=== PATIENT | female | born 1960 | race Two or more races ===

== ENCOUNTER 2016-12-08 17:05 | Inpatient (IN) | payer OTHER ==
[~2016-12-08] VITALS: Ht 162.6 cm; Wt 46.6 kg
[2016-12-08] MEDS ORDERED: SODIUM CHLORIDE FLUSH 10ML SYR IVF ONE (17:30)
[2016-12-08] MEDS ORDERED: ONDANSETRON 2MG/ML, 2ML IVPush ONE (17:30)
[2016-12-08] MEDS ORDERED: PLEASE ENTER ALLERGIES MC SCH ×2 (17:30)
[2016-12-08] MEDS ORDERED: SODIUM CHLORIDE 0.9% 1,000ML IVBOLUS ONE (17:30)
[2016-12-08] MEDS ORDERED: ONDANSETRON 2MG/ML, 2ML ONE (17:43)
[2016-12-08 17:51] LABS: ASPARTATE AMINO TRANSFERASE 29 U/L (15-37); BLOOD UREA NITROGEN 32 mg/dL (7-18)
[2016-12-08 17:54] LABS: ACETAMINOPHEN < 2 mcg/mL (10-30)
[2016-12-08] MEDS ORDERED: MORPHINE SULFATE 4 MG/ML, 1ML ONE ×2 (18:35→21:46)
[2016-12-08] MEDS ORDERED: MORPHINE SULFATE 4 MG/ML, 1ML IVPush ONE ×2 (19:00→22:00)
[2016-12-08 19:10] LABS: DAU SCREEN DISCLAIMER
[2016-12-08 20:50] LABS: GLUCOSE, CSF 100 mg/dL (40-80)
[2016-12-08] MEDS ORDERED: UNKNOWN BP MED (21:54)
[2016-12-08] MEDS ORDERED: SIMV20TA3 PO (21:54)
[2016-12-08] MEDS ORDERED: GLIM2TAB2 PO (21:54)
[2016-12-08] MEDS ORDERED: BISACODYL 10 MG SUPP PR PRN (23:30)
[2016-12-08] MEDS ORDERED: ONDANSETRON 2MG/ML, 2ML IVP PRN (23:30)
[2016-12-08] MEDS ORDERED: POLYETHYLENE GLYCOL 17 GM PACKET PO PRN (23:30)
[2016-12-08] MEDS ORDERED: SIMVASTATIN 20 MG TABLET PO SCH (23:30)
[2016-12-08] MEDS ORDERED: ACETAMINOPHEN 325 MG TABLET PO PRN (23:30)
[2016-12-08] MEDS ORDERED: MECLIZINE CHEWABLE 25 MG TAB PO PRN (23:30)
[2016-12-09 00:13] LABS: IS PT STATUS REG ER OR PRE ER? NO
[2016-12-09] MEDS: SODIUM CHLORIDE 0.9% 1,000 ML IV SCH ×2 (00:26→09:05)
[2016-12-09] MEDS: HEPARIN 5,000 UNITS/ML, 1ML SQ SCH ×4 (00:29→15:30)
[2016-12-09 00:33] VITALS: BP 146/70
[2016-12-09 02:59] VITALS: BP 146/70
[2016-12-09 05:32] LABS: ASPARTATE AMINO TRANSFERASE 18 U/L (15-37); BLOOD UREA NITROGEN 33 mg/dL (7-18)
[2016-12-09 05:40] LABS: IS PT STATUS REG ER OR PRE ER? NO
[2016-12-09 06:47] VITALS: BP 107/57
[2016-12-09] MEDS: GLIMEPIRIDE 1 MG TABLET PO SCH ×2 (08:16→08:47)
[2016-12-09] MEDS ORDERED: SENNA/DOCUSATE TABLET PO SCH (09:00)
[2016-12-09 11:49] LABS: IS PT STATUS REG ER OR PRE ER? NO
[2016-12-09 13:42] VITALS: BP 149/63
[2016-12-09] MEDS ORDERED: GABA100C PO (14:58)
== END 2016-12-09 18:25 | disposition home or self-care (01) | DRG 312 ==
LOC: ED 17:41 → EDIP 21:57 → 4EST 23:14
PROVIDERS: ADMIT Internal Medicine
PROC: 009U3ZX Drainage of Spinal Canal, Percutaneous Approach, Diagnostic (ICD-10-PCS; principal; 2016-12-08)
PROC: 0T9B70Z Drainage of Bladder with Drainage Device, Via Natural or Artificial Opening (ICD-10-PCS; 2016-12-08)
DX: R55 Syncope and collapse (principal); N17.0 Acute kidney failure with tubular necrosis; E87.2 Acidosis; E44.0 Moderate protein-calorie malnutrition; Z68.1 Body mass index [BMI] 19.9 or less, adult; I10 Essential (primary) hypertension; D64.9 Anemia, unspecified; E11.65 Type 2 diabetes mellitus with hyperglycemia; E11.42 Type 2 diabetes mellitus with diabetic polyneuropathy; E87.5 Hyperkalemia; E78.5 Hyperlipidemia, unspecified; Z80.9 Family history of malignant neoplasm, unspecified
CPT/HCPCS: 36415; 62270; 70450; 70551; 72148; 80053; 80307; 80329; 81003; 82140; 82945; 82962; 83036; 83605; 83735; 84157; 84484; 85025; 85610; 85730; 87070; 87205; 87252; 89051; 93005; 93880; 96361; 96374; 96375; 96376; J1644; J2405; G0480; J7030